=== PATIENT | female | born 1985 | race Caucasian/White ===

== ENCOUNTER → 2018-01-10 | Outpatient (CLI) | payer OTHER ==
[2018-01-10] MEDS: SINCALIDE 1.54 MCG in IV NORMAL SALINE 50ML 30 ML IV (11:50)
== END | disposition home or self-care (01) ==
LOC: NM 10:12
DX: R10.84 Generalized abdominal pain (principal); G89.29 Other chronic pain
CPT/HCPCS: 78226; 96374; 96375; A9537; J2805

== ENCOUNTER 2018-02-14 08:14 | Day surgery (SDC) | payer OTHER ==
[~2018-02-14 08:14] MED LIST: HYDROmorphone 2 MG/ML VIAL IV; LIDOCAINE 1% PF 2 ML VIAL. ID; MORPHINE SULFATE 4 MG/ML DISP.SYRIN. IV; ONDANSETRON PF 4 MG/2 ML VIAL. IV; fentaNYL PF VIAL 100 MCG/2 ML VIAL IV
[2018-02-14 08:40] LABS: U PREG PATIENT NEGATIVE (NEG)
[2018-02-14 08:41] LABS: NEG OBC UR NEG; POS OBC UR POS
[2018-02-14] MEDS: IV RINGERS,LACTATED 1000ML 1,000 ML IV (08:57)
[2018-02-14] MEDS ORDERED: fentaNYL PF VIAL 100 MCG/2 ML VIAL (09:00)
[2018-02-14] MEDS ORDERED: FAMOTIDINE 20 MG/2 ML VIAL (09:00)
[2018-02-14] MEDS ORDERED: ONDANSETRON PF 4 MG/2 ML VIAL. (09:00)
[2018-02-14] MEDS ORDERED: DEXAMETHASONE SOD PHOS 20 MG/5 ML VIAL. (09:00)
[2018-02-14] MEDS ORDERED: PROPOFOL 20 ML IV (09:00)
[2018-02-14] MEDS ORDERED: ROCURONIUM 50 MG/5 ML VIAL. (09:00)
[2018-02-14] MEDS ORDERED: LIDOCAINE 2% PF Vial for OR 5 ML VIAL. (09:00)
[2018-02-14] MEDS ORDERED: MIDAZOLAM HCL/PF 2 MG/2 ML VIAL. (09:01)
[2018-02-14] MEDS ORDERED: NEOSTIGMINE METHYLSULFATE 5 MG/5 ML SYRINGE. (09:33)
[2018-02-14] MEDS ORDERED: GLYCOPYRROLATE 1 MG/5 ML VIAL. (09:33)
[2018-02-14] MEDS: BUPIVACAINE-EPI 0.25%-1:200000 50 ML VIAL. (09:56)
[2018-02-14] MEDS ORDERED: DESFLURANE 31 TO 60 MINUTES IH (10:10)
[2018-02-14] MEDS ORDERED: oxyCODONE/APAP 5/325 1 TAB TABLET PO (10:45)
[2018-02-14] MEDS: fentaNYL PF VIAL 100 MCG/2 ML VIAL IV ×2 (10:45→11:01)
[2018-02-14] MEDS: PROCHLORPERAZINE 10 MG/2 ML VIAL. IV (10:45)
[2018-02-14] MEDS: oxyCODONE/APAP 5/325 1 TAB TABLET PO (11:36)
== END 2018-02-14 12:26 | disposition home or self-care (01) ==
LOC: SURG 08:14
DX: K81.1 Chronic cholecystitis (principal); G43.909 Migraine, unspecified, not intractable, without status migrainosus; E78.89 Other lipoprotein metabolism disorders; Z91.018 Allergy to other foods; Z79.899 Other long term (current) drug therapy
CPT/HCPCS: 47562; 81025; 88304; A7015; J0690; J0780; J1100; J2250; J2405; J2704; J2710; J3010; J3490; J7030; J7120; S0028

== ENCOUNTER 2018-05-12 18:34 | Emergency (ER) | payer OTHER ==
[2018-05-12 19:16] LABS: URINE HCG POC HCG NEGATIVE (Negative)
[2018-05-12 19:23] LABS: BILIRUBIN,URINE NEGATIVE (NEG); CLARITY,URINE CLEAR; COLOR,URINE YELLOW; GLUCOSE,URINE NEGATIVE (NEG); NITRITE,URINE NEGATIVE (NEG); PROTEIN,URINE NEGATIVE (NEG-TRACE); UROBILINOGEN,URINE 0.2 mg/dL (0.2 mg/dL)
[2018-05-12 19:29] LABS: BACTERIA,URINE FEW /HPF (0-FEW); RBC,URINE 0 /HPF (0-2); SQUAMOUS EPITHELIAL CELL,UR FEW /LPF
[2018-05-12 19:32] LABS: ADD MAN DIFF? NO
[2018-05-12 19:34] LABS: BASO % 1 % (0-3); EOS # 0.1 x10^3/uL (0.0-0.7); EOS % 2 % (0-3); HEMOGLOBIN 13.8 g/dL (12.0-15.5); LYMPH # 2.3 x10^3/uL (1.0-4.8); LYMPH % 36 % (24-48); MEAN CORPUSCULAR HEMOGLOBIN 32 pg (25-35); MEAN CORPUSCULAR HGB CONC 34 g/dL (31-37); MEAN CORPUSCULAR VOLUME 94 fL (79-100); MONO # 0.5 x10^3/uL (0.0-1.1); MONO % 7 % (0-9); NEUT # 3.5 x10^3uL (1.8-7.7); NEUT % 55 % (31-73); PLATELET COUNT 287 x10^3/uL (140-400); RED BLOOD COUNT 4.36 x10^6/uL (3.50-5.40); RED CELL DISTRIBUTION WIDTH 14.1 % (11.5-14.5); WHITE BLOOD COUNT 6.4 x10^3/uL (4.0-11.0)
[2018-05-12] MEDS: IV NORMAL SALINE 1000ML BAG 1,000 ML IV ×2 (19:37→21:33)
[2018-05-12] MEDS: ONDANSETRON PF 4 MG/2 ML VIAL. IV (19:37)
[2018-05-12] MEDS: fentaNYL PF VIAL 100 MCG/2 ML VIAL IV (19:38)
[2018-05-12 19:42] LABS: ANION GAP 6 (6-14); BLOOD UREA NITROGEN 14 mg/dL (7-20); BUN/CREATININE RATIO 16 (6-20); CALCIUM 9.2 mg/dL (8.5-10.1); CARBON DIOXIDE 29 mmol/L (21-32); CHLORIDE 103 mmol/L (98-107); CREATININE 0.9 mg/dL (0.6-1.0); GLUCOSE 85 mg/dL (70-99); POTASSIUM 3.5 mmol/L (3.5-5.1); SODIUM 138 mmol/L (136-145)
[2018-05-12 19:48] LABS: ALBUMIN 3.9 g/dL (3.4-5.0); ALBUMIN/GLOBULIN RATIO 1.1 (1.0-1.7); ALK PHOS 58 U/L (46-116); ALT (SGPT) 18 U/L (14-59); AST (SGOT) 16 U/L (15-37); TOTAL BILIRUBIN 0.3 mg/dL (0.2-1.0); TOTAL PROTEIN 7.4 g/dL (6.4-8.2)
[2018-05-12 20:52] LABS: LACTIC ACID 0.5 mmol/L (0.4-2.0)
== END 2018-05-12 22:34 | disposition home or self-care (01) ==
LOC: ER 18:34
DX: N39.0 Urinary tract infection, site not specified (principal); G43.909 Migraine, unspecified, not intractable, without status migrainosus; Z90.49 Acquired absence of other specified parts of digestive tract; Z90.89 Acquired absence of other organs; Z91.048 Other nonmedicinal substance allergy status
CPT/HCPCS: 36415; 74176; 80053; 81001; 81025; 83605; 85025; 87086; 96374; 96375; 99285-25; J2405; J3010; J7030